=== PATIENT | female | born 1930 | race Caucasian/White ===

== ENCOUNTER → 2016-03-08 | Outpatient (REF) | payer MEDICARE, BC ==
[~2016-03-08] MED LIST: AMLO25TA PO; ATEN50TA2 PO; CELE-19 PO; CITRTAB18 PO; COMB0.2S OU; ECOT325T3 PO; FOLI1TAB2 PO; FOSI20TA PO; FURO40TA2 PO; HYDR25TAB PO; INFL10VL IV; METH2.5TA PO; MULTTAB PO; NEXI40CA PO; PRAV40TA2 PO; VITA200038 PO; XALA0.002 OU; [UNRECOGNIZED DRUG - CODE] PO
[2016-03-08 13:03] LABS: PERCENT SATURATION 17.6 % (13.2-37.4)
== END ==
LOC: M LAB REF 12:03
PROVIDERS: ATTEND Internal Medicine Medical Oncology
DX: C50.919 Malignant neoplasm of unspecified site of unspecified female breast (principal)

== ENCOUNTER → 2016-05-02 | Day surgery (SDC) | payer MEDICARE, BC ==
[~2016-05-02] VITALS: Ht 157.5 cm; Wt 56.7 kg
[~2016-05-02] MED LIST changes: +ACETAMINOPHEN 325 MG TAB PO PRN; +ACETYLCHOLINE OPHTH SOLN 1% 2ML As Ordered ONE; +ANOR1AER INH; +AcetaZOLAMIDE 500 MG ER CAP PO ONE; +BSS with VANC/TOB/EPI for EYE CASES IR ONE; +CEFUROXIME 1MG/0.1ML INTRACAMERAL INJ As Ordered ONE; +CEFUROXIME 1MG/0.1ML INTRACAMERAL INJ ICAM ONE; +CYCLOPENTOLATE 2% OPHTH SOLN OS ONE; +HEALON DUET (HEALON 10MG/ML 0.55ML & HEALON ENDOCOAT 30MG/ML 0.85ML) As Ordered ONE; +KETOROLAC 0.5% OPHTH SOLN OS ONE; +LIDOCAINE 1% SDV 5 ML VIAL As Ordered ONE; +LIDOCAINE 2% W/EPIN INJ 20ML **PRES FREE As Ordered ONE; +LIDOCAINE 4% INJ 5 ML AMP OU ONE; +MIDAZOLAM INJ 2 MG/2 ML VIAL (J2250) As Ordered ONE; +OFLOXACIN 0.3 % (OCUFLOX) OPTH SOL 5ML OS ONE; +PHENYLEPHRINE 2.5% OPHTH SOL 2ML OS ONE; +POVIDONE-IODINE 5% OPHTH PREP SOL 30ML As Ordered ONE; +PROPARACAINE 0.5% OPHTH SOL 15ML OS PRN; +TOBRADEX OPHTH OINT 3.5 GM As Ordered ONE; +TRIMETHOBENZAMIDE 300 MG CAP PO PRN; +TROPICAMIDE 1% OPHTH SOLN 2 ML OS ONE; +fentaNYL 100 MCG/2 ML INJECTION (J3010) As Ordered ONE; +mitoMYcin (FOR OPHTHALMIC USE) 0.3MG/1ML SYRINGE IN NaCl (J7999) As Ordered ONE; +mitoMYcin (FOR OPHTHALMIC USE) 0.3MG/1ML SYRINGE IN NaCl (J7999) OS ONE
[2016-05-02 10:10] VITALS: BP 159/76
--- NOTE | 2016-05-02 11:41 | RO ---
DATE OF PROCEDURE: 05/02/2016 PREOPERATIVE DIAGNOSIS: Cataract and glaucoma left eye. POSTOPERATIVE DIAGNOSIS: Cataract and glaucoma left eye. PROCEDURE: ExPRESS shunt placement, glaucoma filtration device, and phacoemulsification with intraocular lens implantation, power [id number] 23 diopters. SURGEON: Cristopher Nieves MD EMERGENCY MEDICINE PHYSICIAN: None. COMPLICATIONS: None. PROCEDURE IN DETAIL: The patient was brought to the operating room and laid in supine position. The eye was prepped and draped in a sterile fashion for ophthalmic surgery and a lid speculum was placed. A temporal clear cornea incision was then made with a 2.5 mm keratome after a side port incision was made and EndoCoat was injected into the eye. Capsulorrhexis was then carried out followed by hydrodissection. Phacoemulsification was then done in a divide and conquer method followed by aspiration of the cortical material. Healon was placed in the capsular bag and lens injected. Excess viscoelastic was aspirated and a #10-0 nylon suture was used to close the temporal clear cornea wound. Attention was then diverted to placement of the ExPRESS shunt and a subconjunctival injection of 2% lidocaine with 1:100,000 epinephrine was placed in the subconjunctival space superiorly. The eye was rotated inferiorly using #7-0 Vicryl suture. Conjunctival peritomy was done between 10 oclock and 2 oclock hours followed by subconjunctival dissection superiorly, medially and laterally. A rectangular 4 mm x 3 mm scleral flap was then created, which was limbal based superiorly. The flat was lifted and the anterior chamber was entered with a 27 gauge needle at the blue line. The needle was retracted and through the same needle the ExPRESS shunt was placed. This was draped over by the scleral flap and the conjunctiva closed using #8-0 Vicryl sutures and #10-0 nylon sutures. The wound were tested for leaks. No leaks were noted. Prior to doing the scleral flap, Mitomycin 0.3 mg was placed on the scleral bed followed by copious irrigation after 2 minutes with balance salt solution (BSS). The lid speculum was removed. TobraDex ointment was placed. The eye was patched and Smalls shield was applied. The patient was returned to the recovery room in stable condition.
== END | disposition home or self-care (01) ==
LOC: M SDC 06:21
PROVIDERS: ATTEND Ophthalmology
DX: H26.9 Unspecified cataract (principal); H40.812 Glaucoma with increased episcleral venous pressure, left eye; I10 Essential (primary) hypertension; E78.5 Hyperlipidemia, unspecified; Z87.891 Personal history of nicotine dependence; Z79.899 Other long term (current) drug therapy; Z92.21 Personal history of antineoplastic chemotherapy; K21.9 Gastro-esophageal reflux disease without esophagitis
CPT/HCPCS: 66183; 66984; C1783; J2250; J3010; J7999; V2632

== ENCOUNTER 2016-08-15 07:50 | Outpatient (CLI) | payer MEDICARE, BC ==
[~2016-08-15 07:50] MED LIST changes: -ACETAMINOPHEN 325 MG TAB PO PRN; -ACETYLCHOLINE OPHTH SOLN 1% 2ML As Ordered ONE; -AcetaZOLAMIDE 500 MG ER CAP PO ONE; -BSS with VANC/TOB/EPI for EYE CASES IR ONE; -CEFUROXIME 1MG/0.1ML INTRACAMERAL INJ As Ordered ONE; -CEFUROXIME 1MG/0.1ML INTRACAMERAL INJ ICAM ONE; -CELE-19 PO; +CELE1CAP4 PO; +COSA500C3 PO; -CYCLOPENTOLATE 2% OPHTH SOLN OS ONE; -ECOT325T3 PO; +ECOT325T5 PO; -FOLI1TAB2 PO; +FOLI1TAB4 PO; -HEALON DUET (HEALON 10MG/ML 0.55ML & HEALON ENDOCOAT 30MG/ML 0.85ML) As Ordered ONE; -KETOROLAC 0.5% OPHTH SOLN OS ONE; -LIDOCAINE 1% SDV 5 ML VIAL As Ordered ONE; -LIDOCAINE 2% W/EPIN INJ 20ML **PRES FREE As Ordered ONE; -LIDOCAINE 4% INJ 5 ML AMP OU ONE; -MIDAZOLAM INJ 2 MG/2 ML VIAL (J2250) As Ordered ONE; -OFLOXACIN 0.3 % (OCUFLOX) OPTH SOL 5ML OS ONE; -PHENYLEPHRINE 2.5% OPHTH SOL 2ML OS ONE; -POVIDONE-IODINE 5% OPHTH PREP SOL 30ML As Ordered ONE; -PROPARACAINE 0.5% OPHTH SOL 15ML OS PRN; -TOBRADEX OPHTH OINT 3.5 GM As Ordered ONE; -TRIMETHOBENZAMIDE 300 MG CAP PO PRN; -TROPICAMIDE 1% OPHTH SOLN 2 ML OS ONE; -XALA0.002 OU; +XALA0.007 OU; -[UNRECOGNIZED DRUG - CODE] PO; -fentaNYL 100 MCG/2 ML INJECTION (J3010) As Ordered ONE; -mitoMYcin (FOR OPHTHALMIC USE) 0.3MG/1ML SYRINGE IN NaCl (J7999) As Ordered ONE; -mitoMYcin (FOR OPHTHALMIC USE) 0.3MG/1ML SYRINGE IN NaCl (J7999) OS ONE
[2016-08-15] MEDS ORDERED: ZOLEDRONIC ACID 5 MG in APPROPRIATE DILUENT 1 EA IV ONE (08:00)
== END 2016-08-15 09:00 | disposition home or self-care (01) ==
LOC: M INFU 07:50
PROVIDERS: ATTEND Internal Medicine Endocrinology, Diabetes & Metabolism
DX: M81.0 Age-related osteoporosis without current pathological fracture (principal); Z78.0 Asymptomatic menopausal state; Z85.3 Personal history of malignant neoplasm of breast; Z87.891 Personal history of nicotine dependence; Z79.899 Other long term (current) drug therapy
CPT/HCPCS: 96365; J3489

== ENCOUNTER → 2016-12-12 | Outpatient (REF) | payer MEDICARE, BC | LOC: M LAB REF 17:10 | PROVIDERS: ATTEND Ophthalmology | DX: H02.413 Mechanical ptosis of bilateral eyelids (principal); H02.831 Dermatochalasis of right upper eyelid; H02.834 Dermatochalasis of left upper eyelid ==

== ENCOUNTER → 2017-12-21 | Outpatient (REF) | payer MEDICARE, BC ==
[2017-12-21 17:27] LABS: BASO % 0.5 % (0.0-1.0); EOS # 0.3 10^3/uL (0.0-0.50); EOS % 4.7 % (0.0-3.0); HEMATOCRIT 40.2 % (36.0-47.0); HEMOGLOBIN 13.2 g/dl (12.0-15.5); IMMATURE GRANULOCYTE % 0.3 % (0-3.0); LYMPH # 1.1 10^3/uL (1.5-4.5); LYMPH % 16.4 % (24.0-44.0); MEAN CORPUSCULAR HEMOGLOBIN 32.9 pg (27.0-33.0); MEAN CORPUSCULAR HGB CONC 32.8 g/dl (32.0-36.5); MEAN CORPUSCULAR VOLUME 100.2 fl (80.0-96.0); MONO % 15.6 % (0.0-5.0); NEUTROPHILS % 62.5 % (36.0-66.0); PLATELET COUNT, AUTOMATED 169 10^3/uL (150-450); RED BLOOD COUNT 4.01 10^6/uL (4.00-5.40); RED CELL DISTRIBUTION WIDTH 14.3 % (11.5-14.5); WHITE BLOOD COUNT 6.4 10^3/uL (4.0-10.0)
[2017-12-21 17:30] LABS: ALBUMIN 3.7 GM/DL (3.2-5.2); ALBUMIN/GLOBULIN RATIO 1.23 (1.00-1.93); ALKALINE PHOSPHATASE 82 U/L (45-117); ALT/SGPT 28 U/L (12-78); ANION GAP 6 MEQ/L (8-16); AST/SGOT 27 U/L (7-37); BILIRUBIN,TOTAL 0.5 MG/DL (0.2-1.0); BLOOD UREA NITROGEN 18 MG/DL (7-18); C REACTIVE PROTEIN QUANTITATIV 7.12 MG/DL (0.00-0.30); CALCIUM LEVEL 9.2 MG/DL (8.8-10.2); CARBON DIOXIDE LEVEL 30 MEQ/L (21-32); CHLORIDE LEVEL 101 MEQ/L (98-107); CREATININE FOR GFR 0.79 MG/DL (0.55-1.30); GLOMERULAR FILTRATION RATE > 60.0 (>32); GLUCOSE, FASTING 110 MG/DL (70-100); SODIUM LEVEL 137 MEQ/L (136-145); TOTAL PROTEIN 6.7 GM/DL (6.4-8.2)
[2017-12-21 18:17] LABS: ERYTHROCYTE SEDIMENTATION RATE 39 mm/hr (0-42)
== END ==
LOC: M SFHCLERA 11:01
DX: M06.9 Rheumatoid arthritis, unspecified (principal)
CPT/HCPCS: 80053

== ENCOUNTER 2018-01-08 13:25 | Outpatient (CLI) | payer MEDICARE, BC ==
[2018-01-08] MEDS: ACETAMINOPHEN 650MG PO PRIOR TO INFUSION PO (13:55)
[2018-01-08] MEDS: diphenhydrAMINE 25MG PO PRIOR TO INFUSION PO (13:55)
[2018-01-08] MEDS ORDERED: NS 1,000 ML IV (14:00)
[2018-01-08] MEDS: FILTER 1.2 MICRON (ADULT TPN/MANNITOL/REMICADE) XX (14:19)
[2018-01-08] MEDS: inFLIXimab INJECTION 300 MG in NS 220 ML IV (14:19)
== END 2018-01-08 17:00 | disposition home or self-care (01) ==
LOC: M INFU 13:25
DX: M06.9 Rheumatoid arthritis, unspecified (principal); M19.91 Primary osteoarthritis, unspecified site
CPT/HCPCS: J1745

== ENCOUNTER → 2018-02-22 | Outpatient (REF) | payer MEDICARE, BC ==
[~2018-02-22] MED LIST changes: +FOLI1TAB11 PO; -FOLI1TAB4 PO; -FOSI20TA PO; +FOSI20TA4 PO; +METH2.5T48 PO; -METH2.5TA PO
[2018-02-22 13:42] LABS: BASO % 0.1 % (0.0-1.0); HEMOGLOBIN 13.5 g/dl (12.0-15.5); LYMPH # 1.1 10^3/uL (1.5-4.5); LYMPH % 14.5 % (24.0-44.0); MEAN CORPUSCULAR HEMOGLOBIN 32.8 pg (27.0-33.0); MEAN CORPUSCULAR HGB CONC 33.8 g/dl (32.0-36.5); MEAN CORPUSCULAR VOLUME 97.1 fl (80.0-96.0); MONO # 0.7 10^3/uL (0.0-0.8); MONO % 8.6 % (0.0-5.0); NEUTROPHILS # 5.8 10^3/uL (1.8-7.7); NEUTROPHILS % 76.4 % (36.0-66.0); PLATELET COUNT, AUTOMATED 188 10^3/uL (150-450); RED BLOOD COUNT 4.12 10^6/uL (4.00-5.40); WHITE BLOOD COUNT 7.5 10^3/uL (4.0-10.0)
[2018-02-22 13:45] LABS: ALBUMIN 3.9 GM/DL (3.2-5.2); ALT/SGPT 28 U/L (12-78); BILIRUBIN,TOTAL 0.3 MG/DL (0.2-1.0); BLOOD UREA NITROGEN 23 MG/DL (7-18); C REACTIVE PROTEIN QUANTITATIV < 0.30 MG/DL (0.00-0.30); CALCIUM LEVEL 9.3 MG/DL (8.8-10.2); CARBON DIOXIDE LEVEL 27 MEQ/L (21-32); CHLORIDE LEVEL 100 MEQ/L (98-107); CREATININE FOR GFR 0.63 MG/DL (0.55-1.30); GLOMERULAR FILTRATION RATE > 60.0 (>32); GLUCOSE, FASTING 109 MG/DL (70-100); POTASSIUM SERUM 3.9 MEQ/L (3.5-5.1); SODIUM LEVEL 137 MEQ/L (136-145); URIC ACID 3.2 MG/DL (2.6-6.0)
[2018-02-22 13:51] LABS: TOTAL 25(OH) VITAMIN D 63.4 NG/ML (30.0-100.0)
[2018-02-22 14:10] LABS: ERYTHROCYTE SEDIMENTATION RATE 12 mm/hr (0-42)
== END ==
LOC: M SFHCPLAZ 11:02
PROVIDERS: ATTEND Internal Medicine Rheumatology
DX: M06.9 Rheumatoid arthritis, unspecified (principal)
CPT/HCPCS: 36415; 80053; 82306; 84550; 85025; 85652; 86140; G0463

== ENCOUNTER 2018-03-05 10:57 | Outpatient (CLI) | payer MEDICARE, BC ==
[~2018-03-05] VITALS: Ht 182.9 cm; Wt 60.0 kg
[2018-03-05] VITALS (8 sets, daily range): BP systolic 126–158; BP diastolic 58–69
[2018-03-05] MEDS ORDERED: NS 1,000 ML IV SCH (11:30)
[2018-03-05] MEDS ORDERED: inFLIXimab INJECTION 300 MG in NS 220 ML IV ONE (11:30)
[2018-03-05] MEDS ORDERED: ACETAMINOPHEN 650MG PO PRIOR TO INFUSION PO ONE (11:30)
[2018-03-05] MEDS ORDERED: diphenhydrAMINE 25MG PO PRIOR TO INFUSION PO ONE (11:30)
[2018-03-05] MEDS ORDERED: FILTER 1.2 MICRON (ADULT TPN/MANNITOL/REMICADE) XX ONE (11:30)
== END 2018-03-05 14:20 | disposition home or self-care (01) ==
LOC: M INFU 10:57
PROVIDERS: ATTEND Internal Medicine Rheumatology
DX: M06.9 Rheumatoid arthritis, unspecified (principal); M19.91 Primary osteoarthritis, unspecified site
CPT/HCPCS: 96413; 96415; J1745

== ENCOUNTER → 2018-04-17 | Outpatient (REF) | payer MEDICARE, BC ==
[2018-04-17 14:15] LABS: BASO # 0.1 10^3/uL (0.0-0.2); BASO % 0.8 % (0.0-1.0); EOS # 0.4 10^3/uL (0.0-0.50); EOS % 6.8 % (0.0-3.0); HEMATOCRIT 42.6 % (36.0-47.0); HEMOGLOBIN 14.4 g/dl (12.0-15.5); LYMPH # 1.6 10^3/uL (1.5-4.5); LYMPH % 24.6 % (24.0-44.0); MEAN CORPUSCULAR HEMOGLOBIN 32.8 pg (27.0-33.0); MEAN CORPUSCULAR HGB CONC 33.8 g/dl (32.0-36.5); MONO # 0.6 10^3/uL (0.0-0.8); MONO % 9.6 % (0.0-5.0); NEUTROPHILS # 3.7 10^3/uL (1.8-7.7); NEUTROPHILS % 57.9 % (36.0-66.0); PLATELET COUNT, AUTOMATED 195 10^3/uL (150-450); RED BLOOD COUNT 4.39 10^6/uL (4.00-5.40); WHITE BLOOD COUNT 6.5 10^3/uL (4.0-10.0)
[2018-04-17 14:45] LABS: ERYTHROCYTE SEDIMENTATION RATE 21 mm/hr (0-42)
[2018-04-17 15:02] LABS: ALBUMIN 4.1 GM/DL (3.2-5.2); ALT/SGPT 23 U/L (12-78); BILIRUBIN,TOTAL 0.4 MG/DL (0.2-1.0); BLOOD UREA NITROGEN 18 MG/DL (7-18); C REACTIVE PROTEIN QUANTITATIV < 0.30 MG/DL (0.00-0.30); CALCIUM LEVEL 9.2 MG/DL (8.8-10.2); CARBON DIOXIDE LEVEL 29 MEQ/L (21-32); CHLORIDE LEVEL 102 MEQ/L (98-107); CHOLESTEROL LEVEL 179 MG/DL (<200); CHOLESTEROL RISK RATIO 2.081 (<5); FREE T4 1.44 NG/DL (0.76-1.46); GLOMERULAR FILTRATION RATE > 60.0 (>32); GLUCOSE, FASTING 103 MG/DL (70-100); HDL CHOLESTEROL 86 MG/DL (>40); LDL CHOLESTEROL 78 MG/DL (<100); NON-HDL-C 93 MG/DL; POTASSIUM SERUM 4.1 MEQ/L (3.5-5.1); SODIUM LEVEL 138 MEQ/L (136-145); TOTAL PROTEIN 7.2 GM/DL (6.4-8.2); TRIGLYCERIDES LEVEL 75 MG/DL (<150)
== END ==
LOC: M SFHCPLAZ 11:21
PROVIDERS: ATTEND Internal Medicine Rheumatology
DX: M06.9 Rheumatoid arthritis, unspecified (principal); M19.91 Primary osteoarthritis, unspecified site; R91.8 Other nonspecific abnormal finding of lung field; R76.12 Nonspecific reaction to cell mediated immunity measurement of gamma interferon antigen response without active tuberculosis

== ENCOUNTER → 2018-04-17 | Outpatient (REF) | payer MEDICARE, BC ==
[~2018-04-17] MED LIST changes: +HYDR-2541 PO
[2018-04-17 14:36] LABS: CALCIUM LEVEL 9.3 MG/DL (8.8-10.2)
[2018-04-17 14:55] LABS: TOTAL 25(OH) VITAMIN D 61.4 NG/ML (30.0-100.0)
== END ==
LOC: M LAB REF 14:06
PROVIDERS: ATTEND Nurse Practitioner Family
DX: M81.0 Age-related osteoporosis without current pathological fracture (principal); E55.9 Vitamin D deficiency, unspecified
CPT/HCPCS: 36415; 80053; 80061; 82306; 84439; 84443; 85025; 85652; 86140; G0463

== ENCOUNTER 2018-04-30 10:45 | Outpatient (CLI) | payer MEDICARE, BC ==
[2018-04-30] VITALS (8 sets, daily range): BP systolic 122–176; BP diastolic 58–72
[~2018-04-30] VITALS: Ht 182.9 cm; Wt 60.0 kg
[~2018-04-30 10:45] MED LIST changes: -HYDR-2541 PO
[2018-04-30] MEDS ORDERED: diphenhydrAMINE 25MG PO PRIOR TO INFUSION PO ONE (11:15)
[2018-04-30] MEDS ORDERED: FILTER 1.2 MICRON (ADULT TPN/MANNITOL/REMICADE) XX ONE (11:15)
[2018-04-30] MEDS ORDERED: NS 1,000 ML IV SCH (11:15)
[2018-04-30] MEDS ORDERED: ACETAMINOPHEN 650MG PO PRIOR TO INFUSION PO ONE (11:15)
[2018-04-30] MEDS ORDERED: inFLIXimab INJECTION 300 MG in NS 220 ML IV ONE (12:00)
== END 2018-04-30 14:30 | disposition home or self-care (01) ==
LOC: M INFU 10:45
PROVIDERS: ATTEND Internal Medicine Rheumatology
DX: M06.9 Rheumatoid arthritis, unspecified (principal)
CPT/HCPCS: 96413; 96415; J1745

== ENCOUNTER 2018-06-25 10:57 | Outpatient (CLI) | payer MEDICARE, BC ==
[2018-06-25] VITALS (8 sets, daily range): BP systolic 106–161; BP diastolic 59–76
[~2018-06-25] VITALS: Ht 157.5 cm; Wt 63.4 kg
[~2018-06-25 10:57] MED LIST changes: -FOSI20TA4 PO; +FOSI20TA79 PO; +HYDR-2541 PO
[2018-06-25] MEDS ORDERED: NS 1,000 ML IV SCH (11:15)
[2018-06-25] MEDS ORDERED: LORATADINE 10 MG TAB PO ONE (11:15)
[2018-06-25] MEDS ORDERED: ACETAMINOPHEN 650MG ER TAB (TYLENOL ARTHRITIS) PO ONE (11:15)
[2018-06-25] MEDS ORDERED: diphenhydrAMINE INJ 50MG/ML VIAL (J1200) IV PRN (12:00)
[2018-06-25] MEDS ORDERED: inFLIXimab INJECTION 300 MG in NS 220 ML IV ONE (12:00)
[2018-06-25] MEDS ORDERED: EPINEPHrine INJ 1 MG/ML 1ML AMP IM PRN (12:00)
[2018-06-25] MEDS ORDERED: ALBUTEROL SULFATE 2.5 MG/0.5 ML INH NEB SOLN INH PRN (12:00)
[2018-06-25] MEDS ORDERED: methylPREDNISolone INJ 125 MG/2 ML VIAL (J2930) IV PRN (12:00)
[2018-06-25] MEDS ORDERED: FILTER 1.2 MICRON (ADULT TPN/MANNITOL/REMICADE) XX ONE (12:00)
== END 2018-06-25 14:20 | disposition home or self-care (01) ==
LOC: M INFU 10:57
PROVIDERS: ATTEND Internal Medicine Rheumatology
DX: M06.9 Rheumatoid arthritis, unspecified (principal); J30.2 Other seasonal allergic rhinitis
CPT/HCPCS: 96413; 96415; J1745

== ENCOUNTER → 2018-07-16 | Outpatient (REF) | payer MEDICARE, BC ==
[2018-07-16 19:50] LABS: ALBUMIN 4.2 GM/DL (3.2-5.2); ALT/SGPT 24 U/L (12-78); BILIRUBIN,TOTAL 0.5 MG/DL (0.2-1.0); BLOOD UREA NITROGEN 20 MG/DL (7-18); CALCIUM LEVEL 9.9 MG/DL (8.8-10.2); CARBON DIOXIDE LEVEL 29 MEQ/L (21-32); CHLORIDE LEVEL 101 MEQ/L (98-107); CREATININE FOR GFR 0.64 MG/DL (0.55-1.30); GLOMERULAR FILTRATION RATE > 60.0 (>32); GLUCOSE, FASTING 100 MG/DL (70-100); POTASSIUM SERUM 3.8 MEQ/L (3.5-5.1); SODIUM LEVEL 138 MEQ/L (136-145); TOTAL PROTEIN 7.4 GM/DL (6.4-8.2)
[2018-07-16 19:59] LABS: BASO # 0.1 10^3/uL (0.0-0.2); BASO % 1.1 % (0.0-1.0); EOS # 0.3 10^3/uL (0.0-0.50); EOS % 4.3 % (0.0-3.0); HEMATOCRIT 41.4 % (36.0-47.0); HEMOGLOBIN 13.6 g/dl (12.0-15.5); LYMPH # 2.4 10^3/uL (1.5-4.5); LYMPH % 38.3 % (24.0-44.0); MEAN CORPUSCULAR HEMOGLOBIN 31.8 pg (27.0-33.0); MEAN CORPUSCULAR HGB CONC 32.9 g/dl (32.0-36.5); MEAN CORPUSCULAR VOLUME 96.7 fl (80.0-96.0); MONO # 0.6 10^3/uL (0.0-0.8); NEUTROPHILS % 47.1 % (36.0-66.0); PLATELET COUNT, AUTOMATED 213 10^3/uL (150-450); RED BLOOD COUNT 4.28 10^6/uL (4.00-5.40); WHITE BLOOD COUNT 6.3 10^3/uL (4.0-10.0)
[2018-07-16 20:54] LABS: ERYTHROCYTE SEDIMENTATION RATE 15 mm/hr (0-42)
== END ==
LOC: M SFHCPLAZ 15:25
PROVIDERS: ATTEND Internal Medicine Rheumatology
DX: M06.9 Rheumatoid arthritis, unspecified (principal)
CPT/HCPCS: 36415; 80053; 85025; 85652; 86140; G0463

== ENCOUNTER 2018-08-20 10:43 | Outpatient (CLI) | payer MEDICARE, BC ==
[~2018-08-20] VITALS: Ht 157.5 cm; Wt 63.4 kg
[2018-08-20 11:03] VITALS: BP 154/73
[2018-08-20] MEDS ORDERED: methylPREDNISolone INJ 125 MG/2 ML VIAL (J2930) IV PRN (11:15)
[2018-08-20] MEDS ORDERED: inFLIXimab INJECTION 300 MG in NS 220 ML IV ONE (11:15)
[2018-08-20] MEDS ORDERED: EPINEPHrine INJ 1 MG/ML 1ML VIAL IM PRN (11:15)
[2018-08-20] MEDS ORDERED: NS 1,000 ML IV SCH (11:15)
[2018-08-20] MEDS ORDERED: diphenhydrAMINE INJ 50MG/ML VIAL (J1200) IV PRN (11:15)
[2018-08-20] MEDS ORDERED: ACETAMINOPHEN 650MG ER TAB (TYLENOL ARTHRITIS) PO ONE (11:15)
[2018-08-20] MEDS ORDERED: LORATADINE 10 MG TAB PO ONE (11:15)
[2018-08-20] MEDS ORDERED: ALBUTEROL SULFATE 2.5 MG/0.5 ML INH NEB SOLN INH PRN (11:15)
[2018-08-20] MEDS ORDERED: FILTER 1.2 MICRON (ADULT TPN/MANNITOL/REMICADE) XX ONE (11:15)
[2018-08-20 13:54] VITALS: BP 144/61
[2019-02-14] MEDS ORDERED: LEVO25TA5 PO (09:24)
== END 2018-08-20 14:00 | disposition home or self-care (01) ==
LOC: M INFU 10:43
PROVIDERS: ATTEND Internal Medicine Rheumatology
DX: M06.9 Rheumatoid arthritis, unspecified (principal)
CPT/HCPCS: 96413; 96415; J1745

== ENCOUNTER 2018-10-15 12:45 | Outpatient (CLI) | payer MEDICARE ==
[~2018-10-15] VITALS: Ht 157.5 cm; Wt 63.4 kg
[2018-10-15 12:50] VITALS: BP 155/70
[2018-10-15] MEDS ORDERED: LORATADINE 10 MG TAB PO ONE (13:00)
[2018-10-15] MEDS: NS 1,000 ML IV SCH ×2 (13:15→13:37)
[2018-10-15] MEDS ORDERED: TRAV04OPD OU (13:29)
[2018-10-15 14:00] VITALS: BP 137/64
[2018-10-15] MEDS ORDERED: diphenhydrAMINE INJ 50MG/ML VIAL (J1200) IV PRN (14:00)
[2018-10-15] MEDS ORDERED: methylPREDNISolone INJ 125 MG/2 ML VIAL (J2930) IV PRN (14:00)
[2018-10-15] MEDS ORDERED: FILTER 1.2 MICRON (ADULT TPN/MANNITOL/REMICADE) XX ONE (14:00)
[2018-10-15] MEDS ORDERED: inFLIXimab INJECTION 300 MG in NS 220 ML IV ONE (14:00)
[2018-10-15] MEDS ORDERED: ALBUTEROL SULFATE 2.5 MG/0.5 ML INH NEB SOLN INH PRN (14:00)
[2018-10-15] MEDS ORDERED: EPINEPHrine INJ 1 MG/ML 1ML AMP IM PRN (14:00)
[2018-10-15] MEDS ORDERED: ACETAMINOPHEN 650MG ER TAB (TYLENOL ARTHRITIS) PO ONE (14:00)
[2018-10-15 14:30] VITALS: BP 145/66
[2018-10-15 15:00] VITALS: BP 154/71
[2018-10-15 15:15] VITALS: BP 166/76
== END 2018-10-15 15:20 | disposition home or self-care (01) ==
LOC: M INFU 12:45
PROVIDERS: ATTEND Internal Medicine Rheumatology
DX: M06.9 Rheumatoid arthritis, unspecified (principal)
CPT/HCPCS: 96413; J1745

== ENCOUNTER 2018-12-10 12:44 | Outpatient (CLI) | payer MEDICARE ==
[~2018-12-10] VITALS: Ht 157.5 cm; Wt 63.0 kg
[~2018-12-10 12:44] MED LIST changes: +TRAV04OPD OU
[2018-12-10 12:50] VITALS: BP 154/70
[2018-12-10] MEDS ORDERED: LORATADINE 10 MG TAB PO ONE (13:15)
[2018-12-10] MEDS ORDERED: NS 1,000 ML IV SCH (13:15)
[2018-12-10] MEDS ORDERED: diphenhydrAMINE INJ 50MG/ML VIAL (J1200) IV PRN (13:15)
[2018-12-10] MEDS ORDERED: EPINEPHrine INJ 1 MG/ML 1ML AMP IM PRN (13:15)
[2018-12-10] MEDS ORDERED: ALBUTEROL SULFATE 2.5 MG/0.5 ML INH NEB SOLN INH PRN (13:15)
[2018-12-10] MEDS ORDERED: methylPREDNISolone INJ 125 MG/2 ML VIAL (J2930) IV PRN (13:15)
[2018-12-10] MEDS ORDERED: FILTER 1.2 MICRON (ADULT TPN/MANNITOL/REMICADE) XX ONE (13:15)
[2018-12-10] MEDS ORDERED: ACETAMINOPHEN 650MG ER TAB (TYLENOL ARTHRITIS) PO ONE (13:15)
[2018-12-10] MEDS ORDERED: inFLIXimab INJECTION 300 MG in NS 220 ML IV ONE (13:30)
== END 2018-12-10 15:00 | disposition home or self-care (01) ==
LOC: M INFU 12:44
PROVIDERS: ATTEND Internal Medicine Rheumatology
DX: M06.9 Rheumatoid arthritis, unspecified (principal)
CPT/HCPCS: 96413; J1745

== ENCOUNTER 2019-02-04 13:24 | Outpatient (CLI) | payer MEDICARE ==
[~2019-02-04] VITALS: Ht 157.5 cm; Wt 63.0 kg
[2019-02-04 13:30] VITALS: BP 141/72
[2019-02-04] MEDS ORDERED: ACETAMINOPHEN 650MG ER TAB (TYLENOL ARTHRITIS) PO ONE (13:45)
[2019-02-04] MEDS ORDERED: ALBUTEROL SULFATE 2.5 MG/0.5 ML INH NEB SOLN INH PRN (13:45)
[2019-02-04] MEDS ORDERED: diphenhydrAMINE INJ 50MG/ML VIAL (J1200) IV PRN (13:45)
[2019-02-04] MEDS ORDERED: methylPREDNISolone INJ 125 MG/2 ML VIAL (J2930) IV PRN (13:45)
[2019-02-04] MEDS ORDERED: NS 1,000 ML IV SCH (13:45)
[2019-02-04] MEDS ORDERED: LORATADINE 10 MG TAB PO ONE ×2 (13:45→14:00)
[2019-02-04] MEDS ORDERED: EPINEPHrine INJ 1 MG/ML 1ML VIAL IM PRN (13:45)
[2019-02-04] MEDS ORDERED: OMEP40CA97 PO (13:55)
[2019-02-04] MEDS ORDERED: inFLIXimab INJECTION 300 MG in NS 220 ML IV ONE (14:00)
[2019-02-04 15:45] VITALS: BP 126/61
== END 2019-02-04 15:45 | disposition home or self-care (01) ==
LOC: M INFU 13:24
PROVIDERS: ATTEND Internal Medicine Rheumatology
DX: R06.9 Unspecified abnormalities of breathing (principal)
CPT/HCPCS: 96413; J1745

== ENCOUNTER → 2019-03-04 | Outpatient (CLI) | payer MEDICARE ==
[~2019-03-04] MED LIST changes: +LEVO25TA5 PO; +LIDOCAINE 1% MDV 20ML VIAL As Ordered ONE; +OMEP40CA97 PO
[2019-03-04 11:34] VITALS: BP 139/63
--- NOTE | 2019-03-04 18:47 | REP ---
ULTRASOUND RIGHT CHEST WALL: Real-time sonographic evaluation of the right chest wall was performed. There is an irregular hypoechoic nodule in the soft-tissues measuring 8 x 5 x 7 mm. Ultrasound guided biopsy was subsequently performed. Electronically Signed by Mikey Mcdonald MD 03/06/2019 12:13 P
--- NOTE | 2019-03-06 22:26 | REP ---
Ultrasound-guided right chest wall biopsy. The procedure was performed by KATALINA Mar, under the direct supervision of Dr. Mcdonald. The risks and benefits of the procedure were explained to the patient and informed consent was obtained both verbally and written. Directly prior to the start of the procedure, a formal timeout was completed in the procedure room. The right chest wall nodule was localized using ultrasound guidance. The skin was prepped and draped in a sterile fashion. Approximately 20 ml of 1% lidocaine 10 mg/ml was used as a local anesthetic. Using ultrasound guidance a 19/20 gauge coaxial needle biopsy system was inserted and advanced into the nodule, and 8 core biopsy samples were obtained. The patient tolerated the procedure well and there were no immediate complications. After the appropriate monitored convalescence the patient was discharged from the department. Reviewed by KATALINA Little 03/04/2019 12:02 P Electronically Signed by Mikey Mcdonald MD 03/06/2019 10:18 P
== END ==
LOC: M IRPRO 10:09
PROVIDERS: ATTEND Internal Medicine Hematology & Oncology
DX: C79.89 Secondary malignant neoplasm of other specified sites (principal); Z79.899 Other long term (current) drug therapy

== ENCOUNTER → 2019-03-20 | Outpatient (CLI) | payer MEDICARE ==
[~2019-03-20] MED LIST changes: +DORZ1SOL4 OP; -LIDOCAINE 1% MDV 20ML VIAL As Ordered ONE; +MULT1TAB7 PO; +OCUVTAB PO; +OPTI0.5D5 OP
--- NOTE | 2019-03-20 16:00 | REP ---
PET/CT: History: Right breast carcinoma. Right chest nodule. Palpable lump in the right chest wall. Prior right mastectomy 2007. Comparisons: Comparison sonography February 18, 2019. TECHNIQUE: 45 minutes following the intravenous injection of a 8.17 mCi dose of F-18 FDG, three-dimensional PET scintigraphy is acquired from the skull base to the proximal thighs. Triplanar noncontrast CT scanning is acquired through the same anatomic range for attenuation correction, and image registration with scan parameters optimized to minimize radiation exposure to the patient. PET scintigraphy and CT datasets were fused and displayed on a workstation with multiplanar and projection display capability. PET/CT Findings: Head and neck soft tissues are unremarkable. There are multiple pulmonary parenchymal nodules in the upper lobes bilaterally. These are fairly small, subcentimeter in size. They show visible but non-hypermetabolic radiotracer uptake. This ranges from 1.24 SUV to 1.56 SUV. These are not in the hypermetabolic range. No hypermetabolic uptake is seen in hilar or mediastinum structures. No abnormal focus of chest wall uptake is seen on the right to correspond with the recently biopsied chest wall recurrence. No axillary or other extrathoracic adenopathy is appreciated. In the abdomen and pelvis, normal hepatic, splenic, gastrointestinal, and genitourinary FDG accumulation is appreciated. No abnormal skeletal uptake is seen. Impression: There are multiple subcentimeter pulmonary nodules which show visible but non-hypermetabolic range uptake. Metastatic pulmonary parenchymal disease cannot be excluded. Otherwise negative PET scintigraphy. The biopsied nodule in the right chest wall is not observed and no hypermetabolic chest wall uptake is seen. Electronically Signed by Karan Orantes MD 03/20/2019 04:09 P
== END ==
LOC: M PLARAD 12:06
PROVIDERS: ATTEND Internal Medicine Hematology & Oncology
DX: R91.8 Other nonspecific abnormal finding of lung field (principal); Z85.3 Personal history of malignant neoplasm of breast; Z90.11 Acquired absence of right breast and nipple
CPT/HCPCS: 78815; A9552

== ENCOUNTER → 2019-03-22 | Outpatient (CLI) | payer MEDICARE ==
[~2019-03-22] MED LIST changes: -DORZ1SOL4 OP; -OCUVTAB PO; -OPTI0.5D5 OP
--- NOTE | 2019-03-22 11:40 | REP ---
Focused right breast sonography: History: Remote prior mastectomy. Palpable lump. Comparison sonography of a nodule in the mastectomy scar is from March 04, 2019. Ultrasound-guided needle biopsy of the nodule seen on March 04, 2019 was performed. Repeat imaging is requested regarding a possible palpable abnormality in the lateral aspect of the mastectomy scar closer to the axilla. Today's study is acquired at two different settings, March 22 and March 25, 2019. Findings: Scanning in the area of the medial palpable lump is performed. At this level, approximately the 3 o'clock position, 2 cm from the sternum in the medial aspect of the mastectomy scar, there is a hypoechoic nodule with irregular margins measuring 5 x 4 x 5 mm. It is somewhat angular and on some images appears taller than wide. There is some acoustic shadowing. This is identical in appearance to the nodule seen and biopsied on March 04, 2019 and I believe represents the same focus. The enterprise sales executive who performed the March 04, 2019 study recalls that this was medially positioned along the mastectomy scar at that time. On March 25, 2019, and at my request, the patient was recalled for scanning laterally towards the axilla. This as directed by the referring breast surgeon is in an area proximally 6 cm from the axilla. These images demonstrate an irregularly shaped hypoechoic area laterally measuring 2.1 x 0.5 x 0.8 cm. This has irregular borders. No acoustic shadowing is seen. It is of uncertain significance. Recurrent malignancy cannot be excluded here. Impression: 5 mm hypoechoic suspicious nodule in the soft tissues 2 cm from the sternum in the medial aspect of the mastectomy scar again seen. At the lateral aspect of the mastectomy scar closer to the axilla, there is a second hypoechoic irregularly shaped nodular structure 2.1 cm in greatest diameter. I cannot exclude recurrent malignancy in this more lateral location.
== END ==
LOC: M WHC 08:25
PROVIDERS: ATTEND Surgery
DX: N63.10 Unspecified lump in the right breast, unspecified quadrant (principal); Z90.11 Acquired absence of right breast and nipple; M70.88 Other soft tissue disorders related to use, overuse and pressure other site; Z85.3 Personal history of malignant neoplasm of breast

== ENCOUNTER → 2019-03-25 | Outpatient (CLI) | payer MEDICARE ==
[~2019-03-25] MED LIST changes: +DORZ1SOL4 OP; +GASTROGRAFIN SOLUTION 30ML (Q9963) As Ordered ONE; +ISOVUE-370 76% 100ML VIAL (Q9967) As Ordered ONE; +OCUVTAB PO; +OPTI0.5D5 OP
--- NOTE | 2019-03-25 17:44 | REP ---
Clinical: Breast cancer. Staging. Technique: Axial contrast enhanced images from the thoracic inlet to the upper abdomen with coronal and sagittal re-formations using 100 ml Isovue 370 intravenous contrast material. Comparison: 07/03/2014. Findings: The lung ayala demonstrate diffuse age-related chronic interstitial changes with bronchiectasis and scarring. Subtle scattered reticulonodular interstitial changes along with scattered small non solid densities and few nodular lesions primarily noted in the left upper lobe measuring up to 8 mm are appreciated and findings may represent early pulmonary metastatic disease. No effusion. No pneumothorax. No significant adenopathy identified. Atherosclerotic changes to the thoracic aorta and coronary arteries noted without aortic aneurysm or dissection. No pericardial effusion. Osseous structures demonstrate age-related changes without obvious focal osseous abnormality. Evidence for prior right mastectomy. Impression: Pulmonary parenchymal changes as described above including subtle scattered reticulonodular interstitial changes, non solid now nodular densities, and small few solid nodules up to 8 mm are concerning for metastatic disease. Short-term follow-up is recommended. Electronically Signed by Gabino Burton MD 03/25/2019 05:35 P
--- NOTE | 2019-03-25 17:46 | REP ---
Clinical: Breast cancer. Staging. Technique: Axial contrast enhanced images from the lung bases to the pubic symphysis using oral (per protocol) and 100 ml Isovue 370 intravenous contrast material with coronal and sagittal re-formations. Contrast and delayed images of the abdomen obtained. Findings: Liver, spleen, pancreas, gallbladder, bilateral adrenal glands and kidneys are normal. The enteric system demonstrates small hiatal hernia and no evidence for bowel obstruction or acute inflammatory process. Sigmoid diverticulosis noted without acute diverticulitis. Pelvis demonstrates normal bladder and age-appropriate uterus/adnexa. No ascites. No free air. No adenopathy. No obvious mass lesion. Atherosclerotic changes to the aorta and branch vessels noted without aneurysm or dissection. Musculoskeletal structures demonstrate degenerative changes without focal osseous abnormality. Impression: 1. No acute abdominopelvic pathology appreciated. Specifically, no evidence for metastatic disease. 2. Diverticulosis without acute diverticulitis. 3. Small hiatal hernia. 4. No ascites, adenopathy, or focal inflammatory stranding. Electronically Signed by Gabino Burton MD 03/25/2019 05:37 P
== END ==
LOC: M RAD 03-20 11:46
PROVIDERS: ATTEND Internal Medicine Hematology & Oncology
DX: R22.2 Localized swelling, mass and lump, trunk (principal); Z85.3 Personal history of malignant neoplasm of breast; J47.9 Bronchiectasis, uncomplicated; J84.10 Pulmonary fibrosis, unspecified; J91.8 Pleural effusion in other conditions classified elsewhere; I70.0 Atherosclerosis of aorta; I25.10 Atherosclerotic heart disease of native coronary artery without angina pectoris; Z90.11 Acquired absence of right breast and nipple; K57.90 Diverticulosis of intestine, part unspecified, without perforation or abscess without bleeding; K44.9 Diaphragmatic hernia without obstruction or gangrene
CPT/HCPCS: 71260; 74178; Q9963; Q9967

== ENCOUNTER → 2019-03-28 | Outpatient (CLI) | payer MEDICARE ==
[~2019-03-28] MED LIST changes: -GASTROGRAFIN SOLUTION 30ML (Q9963) As Ordered ONE; -ISOVUE-370 76% 100ML VIAL (Q9967) As Ordered ONE
--- NOTE | 2019-03-28 20:07 | RADONC ---
DATE OF CONSULTATION: 03/28/2019 CHIEF COMPLAINT: Recurrent breast cancer (CA). DIAGNOSIS: Initial diagnosis in 2007 was T2N0M0 ER/MT positive. HISTORY OF PRESENT ILLNESS: Ms. Cervantes an 88-year-old woman was seen with recurrent breast ca. She underwent right lumpectomy and right sentinel node biopsy on 02/27/2007 Pathology showed invasive lobular carcinoma, grade 2, ER 25% positive, MT negative, HER2 negative tumor 3 cm in size, and four sentinel lymph nodes were negative. Because of the positive margins right simple mastectomy was performed in April 2007, She underwent chemotherapy with doxycycline and Cytoxan from July 2007, to August 2007 according to the patient. She then started on anastrazole for the next 6 years until August 2013. She did well without any evidence of recurrence, or metastasis until 3months ago when she felt anodule in the medial edge of the right mastectomy scar. Ultrasound of that area confirmed 7 x 6 x 5 mm hypoechoic nodule at this site of palpable abnormality. Ultrasound-guided biopsy of the nodule was performed on 03/04/2019, and pathology showed adenocarcinoma, morphologically consistent with infiltrating mammary carcinoma with lobular features, similar to prior pathology, ER/MT positive, HER2/safia negative. She underwent staging workup. CT chest 03/25/2019 reported diffuse age-related chronic interstitial changes with bronchiectasis and scarring and also reported ductal scattered reticular nodular interstitial changes and small few solid nodules up to 8 mm concerning for metastatic disease. Short-term followup was recommended. CT of the abdomen and pelvis negative for suspicious metastatic disease. PETCT on 03/20/2019 reported multiple subcentimeter pulmonary nodules, which showed visible non-hypermetabolic range uptake. Metastatic disease cannot be excluded. She has no clinical symptoms at this time. PAST MEDICAL HISTORY: Significant: 1. As mentioned, breast cancer. 2. Hypothyroidism. 3. Rheumatoid arthritis. 4. Glaucoma bilateral. 5. Rheumatoid arthritis. 6. Osteoporosis. 7. Hyperlipidemia. 8. Hypertension. 9. She had positive diverticulosis (TB) test in 2010. Asymptomatic. No treatment. 10. GERD. PAST SURGICAL HISTORY: Includes right simple mastectomy in 2007. CURRENT MEDICATIONS: - Anoro Ellipta - hydrochlorothiazide 25 mg tablet once daily - levothyroxine sodium 25 mcg tablet one tablet orally daily - Ocuvite tablet one tablet orally - celecoxib 200 mg capsule one daily - Remicade 100 mg solution intravenous every 8 weeks - atenolol 50 mg tablet once daily - amlodipine besylate 5 mg tablet two daily - fosinopril sodium 20 mg tablet one tablet twice a day - loratadine 10 mg tablet orally - omeprazole 20 mg tablet once daily - Travatan ophthalmic solution - folic acid - Celebrex - pravastatin sodium 40 mg once daily ALLERGIES: She has no known drug allergies. REVIEW OF SYSTEMS: GENERAL/CONSTITUTIONAL: She denies fever, chills, night sweats, fatigue, or weight changes. HEENT: Denies visual problems or hearing problems. Denies tinnitus. CARDIOPULMONARY: Denies chest pain, shortness of breath (SOB), palpitations, dizziness, cough. GASTROINTESTINAL: Denies nausea, vomiting, constipation, diarrhea, or pain. She has gastroesophageal reflux disease (GERD). GENITOURINARY: Denies dysuria, hematuria, incontinence, frequency, or urgency. MUSCULOSKELETAL: Denies bone pain, muscle ache. CENTRAL NERVOUS SYSTEM: No tingling. No weakness. No numbness, headache. BREAST EXAMINATION: Noted right mastectomy scar, and there is a noted healed biopsy scar in the medial end of the mastectomy, and there is slight tenderness over that scar. There is no palpable adenopathy in the neck or axilla bilaterally. PHYSICAL EXAMINATION: Eastern Cooperative Oncology Group (ECOG) performance status is 1. GENERAL: She appears to be younger than her stated age of 88. She is alert, oriented. VITAL SIGNS: Blood pressure 130/70, temperature 97.7, pulse 62, respirations 16. She weighs 136.4 pounds. Height 63 inches. Oxygen saturation is 95% on room air. HEENT: There is no palpable adenopathy on the neck or axilla bilaterally. BREASTS: There is a well-healed mastectomy scar. of the right chest wall. Medial end of the scar there is a well-healed biopsy scar, and there is slight induration above the scar and tender on palpation. There is no visible nodules. Left breast is nogative lump or tenderness. LUNGS: cparse breath sound both lungs. no wheezing. HEART: Regular rhythm and rate. ABDOMEN: Soft, nontender, nondistended without any palpable mass or organomegaly. EXTREMITIES: There is no cyanosis. There are swelling in both legs, about 1-2 pitting. SKIN: No skin changes. MUSCULOSKELETAL: No tenderness over the spine and rib cages. PATHOLOGIC FINDINGS: As mentioned in history of present illness (HPI). Radiologic findings mentioned in HPI. ICD-10 code C50.311. DIAGNOSIS: Recurrent invasive lobular carcinoma, INITIAL STAGING:T2N0 ER/MT positive, HER2/safia negative. ASSESSMENT AND RECOMMENDATIONS: Ms. Cervantes is an 88-year-old woman who has a history of right lumpectomy 02/27/2007. Pathology showed invasive lobular carcinoma, measuring 3 cm in size. Four sentinel nodes were negative. Because of the positive margin, she underwent simple mastectomy in April 2007. She received adjuvant chemotherapy until August 2007 and continued Arimidex to 2013. Patient did well until about 2-3 months ago, when she felt a lump around the mastectomy scar. The ultrasound of that nodule confirmed 7 x 6 x 5 mm hypoechoic nodule, and ultrasound-guided biopsy on 03/04/2019 came back adenocarcinoma, morphologically consistent with history of infiltrating mammary carcinoma with lobular features, ER/MT positive, HER2/safia negative. She had a CT chest, abdomen,pelvis and a PET CT. CT of the chest showed diffuse chronic interstitial changes with bronchiectasis and scarring a small few solid nodules up to 8 mm concerning for metastatic disease. Short-term was recommended, and PET CT showed multiple subcentimeter pulmonary nodules but no hypermetabolic uptake; however, metastatic pulmonary parenchymal disease cannot be excluded. Patient was accompanied by her son and grandson. We have discussed nature of the disease and also reviewed NCCN guidelines. Based on the NCCN guidelines, management of local recurrent disease,of the patient was treated initially with mastectomy and no prior radiation, still surgical resection is the recommended treatment if possible plus followed by radiation; I also discussed her main treatment will be systemic treatment. have pulm . We will follow as follow up and treatment progresses. ASHLEY
== END ==
LOC: M ONCR 10:21
PROVIDERS: ATTEND Radiology Radiation Oncology
DX: C50.911 Malignant neoplasm of unspecified site of right female breast (principal); E03.9 Hypothyroidism, unspecified; E78.5 Hyperlipidemia, unspecified; H40.9 Unspecified glaucoma; I10 Essential (primary) hypertension; K21.9 Gastro-esophageal reflux disease without esophagitis; M06.9 Rheumatoid arthritis, unspecified; M81.0 Age-related osteoporosis without current pathological fracture; R76.11 Nonspecific reaction to tuberculin skin test without active tuberculosis; R91.8 Other nonspecific abnormal finding of lung field; Z79.899 Other long term (current) drug therapy; Z90.11 Acquired absence of right breast and nipple

== ENCOUNTER 2019-04-01 13:17 | Outpatient (CLI) | payer MEDICARE ==
[~2019-04-01] VITALS: Ht 157.5 cm; Wt 63.0 kg
[2019-04-01 13:25] VITALS: BP 116/59
[2019-04-01] MEDS ORDERED: methylPREDNISolone INJ 125 MG/2 ML VIAL (J2930) IV PRN (13:30)
[2019-04-01] MEDS ORDERED: EPINEPHrine INJ 1 MG/ML 1ML VIAL IM PRN (13:30)
[2019-04-01] MEDS ORDERED: diphenhydrAMINE INJ 50MG/ML VIAL (J1200) IV PRN (13:30)
[2019-04-01] MEDS ORDERED: LORATADINE 10 MG TAB PO ONE (13:30)
[2019-04-01] MEDS ORDERED: ALBUTEROL SULFATE 2.5 MG/0.5 ML INH NEB SOLN INH PRN (13:30)
[2019-04-01] MEDS ORDERED: NS 1,000 ML IV SCH (13:30)
[2019-04-01] MEDS ORDERED: ACETAMINOPHEN 650MG ER TAB (TYLENOL ARTHRITIS) PO ONE (13:30)
[2019-04-01] MEDS ORDERED: inFLIXimab INJECTION 300 MG in NS 220 ML IV ONE (14:00)
[2019-04-01 16:20] VITALS: BP 133/62
== END 2019-04-01 16:20 | disposition home or self-care (01) ==
LOC: M INFU 13:17
PROVIDERS: ATTEND Internal Medicine Rheumatology
DX: M06.9 Rheumatoid arthritis, unspecified (principal)
CPT/HCPCS: 96413; 96415; J1745

== ENCOUNTER → 2019-04-04 | Outpatient (CLI) | payer MEDICARE ==
[2019-04-04 09:06] VITALS: BP 132/74
--- NOTE | 2019-04-04 09:39 | ROOPDOC ---
[facility] Report Of Operation Report of Operation DATE OF PROCEDURE: 04/04/19 PREPROCEDURE DIAGNOSES: Right chest wall mass with right breast cancer recurrence POSTPROCEDURE DIAGNOSES: Right chest wall mass with right breast cancer recurrence PROCEDURE: Ultrasound-guided right chest wall mass biopsy with clip placement SURGEON: Cassi Bonilla SUGARCANE PLANTER: ANESTHESIA: Local ESTIMATED BLOOD LOSS: Approximately 1 mL. COMPLICATIONS: None REMARKS: Post biopsy mammogram was not done as patient has a history of right mastectomy without reconstruction and the mass was on her right chest wall PROCEDURE NOTE: DESCRIPTION OF PROCEDURE: Lidocaine 1% LOT CLC [id number] Expiration 03/2020 Sodium Bicarbonate 8.4% LOT [id number] Expiration 10/2020 Hydromark clip LOT [id number] Expiration 11/2020 Titanium shape 3 Bx device: BARD [id number] x10 cm LOT [id number] [id number] Expiration 01/2022 Informed consent was obtained. The most common risk and possible complications including bleeding, hematoma, bruising, infection, injury to surrounding structures were explained to the patient and she expressed understanding. Patient was taken to the procedure room and placed on the bed in the supine position with the right upper extremity placed above the head. Appropriate time out was done stating patients name, date of , and the procedure to be performed. Patient has a history of right mastectomy without reconstruction and she has well healed oblique scar across the chest. The right chest wall was prepped and draped in the usual fashion. The ultrasound was used to confirm the location of the lesion at the right chest wall superior aspect of the mastectomy scar, 6 centimeters from Axilla, inferior and lateral to the lateral aspect of the pectoralis major muscle Plain Lidocaine 1% and 8.4% sodium bicarbonate 10:1 mix was used to numb the skin, the biopsy site and tissues along the anticipated biopsy tract. Small skin incision was made with blade number 11. BARD Marquee 14G cannula with in troducer ([id number]) was inserted through the incision and advanced under the ultrasound guidance to position immediately adjacent to the lesion. Next, the introducer was removed and BARD Marquee 14G biopsy device was places in the cannula. Pre-biopsy imaging, and post-biopsy imaging were captured. Six good core biopsies were taken at various levels of the lesion. Specimen was placed in formaldehyde, labeled with appropriate biopsy site and patients name, and sent to pathology for evaluation. Next, the biopsy device was withdrawn and a clip introducer was inserted into the biopsy site via the cannula. The Hydromark clip was deployed under direct vision. Post-clip placement image was captured. Manual pressure over the biopsy cavity and tract was held after the clip introducer was withdrawn. No bleeding was noted upon removal of the pressure. Post-biopsy mammogram was not done as patient has a history of mastectomy and the lesion was on the right chest wall. Postprocedural dressing was placed. Patient tolerated procedure well. Discharge instructions were discussed with the patient and she expressed understanding. CASSI Kim DO Apr 04, 2019 09:39
--- NOTE | 2019-04-04 10:17 | REP ---
FOCUSED RIGHT CHEST WALL/BREAST ULTRASOUND: HISTORY: Ultrasound-guided right breast biopsy, recurrent cancer right breast. FINDINGS: Sonographic guidance is provided to Dr. Bonilla, who performed ultrasound-guided needle biopsy procedure.
== END ==
LOC: M WHCPRO 07:36
PROVIDERS: ATTEND Surgery
DX: D23.5 Other benign neoplasm of skin of trunk (principal); Z90.11 Acquired absence of right breast and nipple; Z85.3 Personal history of malignant neoplasm of breast

== ENCOUNTER → 2019-06-04 | Outpatient (CLI) | payer MEDICARE ==
[~2019-06-04] MED LIST changes: -DORZ1SOL4 OP; +DORZ1SOL4 OU; +LETR2.5T2 PO; +ULTR50TA8 PO; +VITAD1000T PO
== END ==
LOC: M LABSMTC 10:00
PROVIDERS: ATTEND Anesthesiology
DX: Z11.59 Encounter for screening for other viral diseases (principal)

== ENCOUNTER 2019-06-05 06:07 | Day surgery (SDC) | payer MEDICARE ==
[~2019-06-05] VITALS: Ht 160 cm; Wt 59.9 kg
[~2019-06-05 06:07] MED LIST changes: +LIDOCAINE 1% MDV 20ML VIAL SQ PRN; -ULTR50TA8 PO
[2019-06-05] MEDS ORDERED: HEPARIN SOD (PORCINE) 5000UNITS/ML VIAL (J1644 PER 1000UNITS) SQ ONE (07:00)
[2019-06-05] MEDS ORDERED: BUPIVACAINE HCL 0.25% 10ML VIAL As Ordered ONE (07:00)
[2019-06-05] MEDS ORDERED: ceFAZolin SOD 2 GM in IV 1 EA IV ONE (07:00)
[2019-06-05] MEDS ORDERED: LIDOCAINE 1% MDV 20ML VIAL As Ordered ONE (07:00)
[2019-06-05] MEDS ORDERED: LR 1,000 ML IV ONE (07:00)
[2019-06-05] MEDS ORDERED: propofoL 200 MG/20 ML VIAL As Ordered ONE (07:19)
[2019-06-05] MEDS ORDERED: MIDAZOLAM INJ 2MG/2ML VIAL (J2250 PER 1MG) As Ordered ONE (07:20)
[2019-06-05] MEDS ORDERED: LIDOCAINE 2% 100MG/5ML SDV (FOR ANES.) As Ordered ONE (07:20)
[2019-06-05] MEDS ORDERED: fentaNYL 100 MCG/2 ML INJECTION (J3010) As Ordered ONE (07:20)
[2019-06-05] MEDS ORDERED: ROCURONIUM BROMIDE 50 MG/5 ML VIAL As Ordered ONE (07:20)
[2019-06-05] MEDS ORDERED: ONDANSETRON 4MG/2ML VIAL As Ordered ONE (07:21)
[2019-06-05] MEDS ORDERED: dexameTHASONE 4 MG/ML 1ML VIAL (J1100 PER 1MG) As Ordered ONE (07:21)
[2019-06-05] MEDS ORDERED: ePHEDrine SULFATE 25 MG/5 ML(5MG/ML) SYRINGE As Ordered ONE (08:01)
[2019-06-05] MEDS ORDERED: ULTR50TA8 PO (09:03)
[2019-06-05] MEDS ORDERED: PHENYLephrine HCL 500 MCG/5 ML (100MCG/ML) SYRINGE (J2370) As Ordered ONE (09:43)
[2019-06-05 09:50] VITALS: BP 136/65
--- NOTE | 2019-06-05 11:27 | ROOPDOC ---
[facility] Report Of Operation Report of Operation DATE OF PROCEDURE: 06/05/19 PREPROCEDURE DIAGNOSES: Right breast cancer chest wall recurrence POSTPROCEDURE DIAGNOSES: Right breast cancer chest wall recurrence PROCEDURE: Right breast cancer chest wall recurrence excision SURGEON: Cassi Shelley UPPER TRIMMER: ANESTHESIA: MAC ESTIMATED BLOOD LOSS: Approximately 1 mL. COMPLICATIONS: none REMARKS: the suspicious nodule was identified in the middle of the specimen using intraop ultrasound DESCRIPTION OF PROCEDURE: INDICATIONS: Ms. Cervantes is an 88-year-old woman who has a right breast cancer recurrence after right breast mastectomy. She initially had a right invasive lobular carcinoma diagnosed in 2007 which was treated with lumpectomy initially but due to positive margins simple mastectomy was done on the right side. She underwent chemotherapy due to positive lymph nodes and completed the antihormonal treatment. Unfortunately, recently she discovered a hard nodule on the medial aspect of her mastectomy site. This was biopsied and came back as Invasive lobular carcinoma. She was referred to me by medical oncology to do excision of the nodule after systemic evaluation was completed. Patient has a history of RA and was on Remicade. Last infusion was 8 weeks ago. Risks and possible complications of surgical procedure including bleeding, infection and injury to surrounding structures were explained to the patient and she wished to proceed. Consent was signed. My initials were placed on the operative site. Subcutaneous injection of 5000 units of heparin was done in Preop. DETAILS: Patient was taken to the operating room and placed on the operating room table. A sign in was called stating patients name, date of and the procedure to be done. Preoperative antibiotics were infused. Moderate sedation anesthesia was done. Patients hands were extended on arm rests. Care was taken not to over extend the arms. Next, patients right chest wall was prepped and draped in the usual fashion. Appropriate time out was done. Patients name, date of , and the procedure to be done were confirmed. The right chest wall nodule was identified by palpation and confirmed with intraop ultrasound. Borders of excision were marked using the ultrasound to assure adequate margins. Next, generous amount of local anesthetic using 1% lidocaine and 0.25 % Marcaine 50/50 mix was injected at the site of planned elliptical incision located at the medial aspect of the right chest wall. The incision was made with the scalpel. The dissection was carried all the way down to the muscle. Excision of tissue measuring 3.5 x 3 cm was done. The suspicious nodule was confirmed to be centrally located in the specimen with intraop ultrasound. The specimen was carefully removed from chest wall keeping its proper orientation and moved to the back table where margins were marked with the surgical inking kit following the standard colors recommendations. Anterior margin was not marked as the skin was kept with the specimen. The specimen was labeled with patients name and right chest wall excision and sent to pathology. Next, the wound was irrigated thoroughly and adequate hemostasis was assured. Additional local anesthetic was injected into surrounding tissues. space was approximated with 3-0 Vicryl. The dermis was closed with 3-0 Vicryl and skin was closed with 4-0 Monocryl. Surgical glue was placed over the incision. Patient emerged from the anesthesia without any problems. Fluffs were placed over the operative site and patients chest was wrapped snuggly in the DANIA wrap. Sponge and instrument counts were done and were correct. Patient tolerated procedure well and was taken to recovery unit in stable condition. CASSI SHELLEY DO Jun 05, 2019 10:04
== END 2019-06-05 10:10 | disposition home or self-care (01) ==
LOC: M SDC 06:07
PROVIDERS: ATTEND Surgery
DX: C50.911 Malignant neoplasm of unspecified site of right female breast (principal); Z90.11 Acquired absence of right breast and nipple; Z85.3 Personal history of malignant neoplasm of breast; I10 Essential (primary) hypertension; E78.00 Pure hypercholesterolemia, unspecified; E03.9 Hypothyroidism, unspecified; K21.9 Gastro-esophageal reflux disease without esophagitis; M06.9 Rheumatoid arthritis, unspecified; M19.90 Unspecified osteoarthritis, unspecified site; M54.9 Dorsalgia, unspecified; M85.80 Other specified disorders of bone density and structure, unspecified site; H40.9 Unspecified glaucoma; J30.9 Allergic rhinitis, unspecified; Z79.899 Other long term (current) drug therapy; Z92.21 Personal history of antineoplastic chemotherapy; Z92.3 Personal history of irradiation
CPT/HCPCS: 11606; 13101; 13102; 88309; 88341; 88342; J0690; J1100; J1644; J2370; J2405; J3010

== ENCOUNTER 2019-07-05 11:52 | Outpatient (CLI) | payer MEDICARE ==
[~2019-07-05] VITALS: Ht 157.5 cm; Wt 59.4 kg
[2019-07-05] VITALS (8 sets, daily range): BP systolic 94–118; BP diastolic 53–58
[~2019-07-05 11:52] MED LIST changes: -LIDOCAINE 1% MDV 20ML VIAL SQ PRN; +ULTR50TA8 PO
[2019-07-05] MEDS ORDERED: NS 1,000 ML IV SCH (12:00)
[2019-07-05] MEDS ORDERED: methylPREDNISolone INJ 125 MG/2 ML VIAL (J2930) IV PRN (12:00)
[2019-07-05] MEDS ORDERED: EPINEPHrine INJ 1 MG/ML 1ML AMP IM PRN (12:00)
[2019-07-05] MEDS ORDERED: LORATADINE 10 MG TAB PO ONE (12:00)
[2019-07-05] MEDS ORDERED: diphenhydrAMINE 50MG/ML VIAL (J1200) IV PRN (12:00)
[2019-07-05] MEDS ORDERED: ACETAMINOPHEN 650MG ER TAB (TYLENOL ARTHRITIS) PO ONE (12:00)
[2019-07-05] MEDS ORDERED: ALBUTEROL SULFATE 2.5 MG/0.5 ML INH NEB SOLN INH PRN (12:00)
[2019-07-05] MEDS ORDERED: inFLIXimab INJECTION 300 MG in NS 220 ML IV ONE (12:15)
[2019-07-08] MEDS ORDERED: LETR2.5T2 PO (14:51)
== END 2019-07-05 14:45 | disposition home or self-care (01) ==
LOC: M INFU 11:52
PROVIDERS: ATTEND Internal Medicine
DX: M06.9 Rheumatoid arthritis, unspecified (principal); Z79.82 Long term (current) use of aspirin; Z79.899 Other long term (current) drug therapy
CPT/HCPCS: 96413; 96415; J1745

== ENCOUNTER → 2019-07-23 | Outpatient (CLI) | payer MEDICARE ==
[~2019-07-23] MED LIST changes: +ASPI1TAB22 PO
--- NOTE | 2019-07-25 10:26 | RADONC ---
RADIATION ONCOLOGY FOLLOWUP CONSULTATION NOTE DATE: 07/23/2019 This is a telemedicine visit. The patient was informed of the risks including security breech, technological failure, inability to perform a comprehensive physical exam which could delay or prevent an accurate diagnosis, and potential complications from treatment decisions rendered over a telemedicine platform. The patient understands and consented to the use of telehealth services phone only. DIAGNOSIS: Right breast cancer. STAGE: Recurrent. ECOG PERFORMANCE STATUS: Not evaluated. FOLLOWUP NOTE: Ms. Cervantes is a very pleasant 88-year-old female with the diagnosis of recurrent chest wall right-sided breast cancer who was initially seen in our department by Dr. Jhoana Dias, on 03/28/2019. Refer to her consultation note, which is quite thorough. At that time, Dr. Dias reviewed the NCCN guidelines with the patient and recommended a surgical resection of her chest wall recurrence followed possibly by radiation therapy in order to increase the likelihood of achieving local control. Since her last consult, the patient underwent surgical chest wall resection on 06/05/2019. Pathology revealed a 0.7 cm poorly differentiated infiltrating carcinoma with lobular features. Perineural invasion was present. There was no lymph vascular invasion identified. The surgical margins were uninvolved by invasive carcinoma. The tumor was therefore staged as a pathologic [id number] recurrent malignancy. Of note, the tumor was estrogen receptor positive, progesterone receptor positive and HER2/safia negative. The patient reports that she was started on letrozole by medical oncology and is now presenting for discussion of external beam radiation therapy. REVIEW OF SYSTEMS: The patient reports that she is quite elderly and has trouble just getting around the house. She has a great deal the physical limitations according to today's discussion. Her review of systems is otherwise noncontributory. Denies nausea, vomiting, fevers, chills, night sweats, diplopia, headaches, anxiety or depression, anorexia, weight loss, visual disturbances, chest pain, urinary or bowel difficulties, bone pain, or neurological problems. PHYSICAL EXAMINATION: Physical examination was deferred at this time as per COVID precautions. Should the patient change her mind and wish to undergo treatments, we will examine her chest wall at time of treatment planning. ASSESSMENT: I had a very lengthy discussion with this patient with regards to the potential benefits as well as acute and chronic sequelae of external beam radiation therapy. I explained that I believe post op radiation is the best treatment and standard recommendation. In detail, I explained to her the likelihood of local recurrence with and without radiation. I explained the reasoning behind offering her radiation. I did describe a higher of local recurrence without RT. The patient has decided against treatment at this time. I made clear to her that she needs to continue her letrozole treatments if she chooses not to undergo radiation and maintain close followup and routine chest wall examinations with her breast surgeon and medical oncologist so that intervention can be undertaken at the earliest sign of any local recurrence. Considering the patient's advanced age and difficulty with transportation as well as our current COVID issues, I do not think it unreasonable to choose hormonal therapy at this point. The tumor after all is hormone receptor positive. I did offer the patient radiation and I did explain again that RT would be my recommendation. If she were younger and in better shape, I would even more aggressively be pushing this as I think she has a high likelihood of chest wall recurrence, especially if she were to stop taking her hormonal therapy. I have given the patient my cell phone number and the office number. Should she change her mind, we can initiate treatment planning and treat her at anytime. Once again at the age of 88 and with this patient's self described fragility, I cannot say she has made an incorrect choice. I have not physically seen the patient and her initial consultation was with a different radiation physician. Thank you for allowing us to participate in the care of this very pleasant woman. I am more than happy to see her at anytime should she decide on radiation. She is scheduled to be seen by medical oncology again to discuss continued hormonal therapy and other options. cc: DO Fadi Casas MD Frederick Tontarski, PA MTDD
== END ==
LOC: M ONCR 09:18
PROVIDERS: ATTEND Radiology Radiation Oncology
DX: C50.919 Malignant neoplasm of unspecified site of unspecified female breast (principal)

== ENCOUNTER 2019-10-28 11:53 | Outpatient (CLI) | payer MEDICARE ==
[~2019-10-28] VITALS: Ht 157.5 cm; Wt 59.4 kg
[~2019-10-28 11:53] MED LIST changes: +D31000TA2 PO; -VITAD1000T PO
[2019-10-28 12:00] VITALS: BP 134/65
[2019-10-28] MEDS ORDERED: diphenhydrAMINE 50MG/ML VIAL (J1200) IV PRN (12:00)
[2019-10-28] MEDS ORDERED: ACETAMINOPHEN 650MG ER TAB (TYLENOL ARTHRITIS) PO ONE (12:00)
[2019-10-28] MEDS ORDERED: LORATADINE 10 MG TAB PO ONE (12:00)
[2019-10-28] MEDS ORDERED: EPINEPHrine INJ 1 MG/ML 1ML AMP IM PRN (12:00)
[2019-10-28] MEDS ORDERED: ALBUTEROL SULFATE 2.5 MG/0.5 ML INH NEB SOLN INH PRN (12:00)
[2019-10-28] MEDS ORDERED: NS 1,000 ML IV SCH (12:00)
[2019-10-28] MEDS ORDERED: methylPREDNISolone 125MG 2ML VIAL IV PRN (12:00)
[2019-10-28] MEDS ORDERED: inFLIXimab INJECTION 300 MG in NS 220 ML IV ONE (12:00)
[2019-10-28] MEDS ORDERED: LORATADINE 10 MG TAB As Ordered ONE (12:18)
[2019-10-28] MEDS ORDERED: ACETAMINOPHEN 650MG ER TAB (TYLENOL ARTHRITIS) As Ordered ONE (12:18)
[2019-10-28 12:45] VITALS: BP 134/65
[2019-10-28 13:00] VITALS: BP 122/62
[2019-10-28 14:30] VITALS: BP 115/59
== END 2019-10-28 14:30 | disposition home or self-care (01) ==
LOC: M INFU 11:53
PROVIDERS: ATTEND Internal Medicine
DX: M06.9 Rheumatoid arthritis, unspecified (principal)
CPT/HCPCS: 96413; 96415; J1745

== ENCOUNTER 2019-12-23 12:01 | Outpatient (CLI) | payer MEDICARE ==
[~2019-12-23] VITALS: Ht 157.5 cm; Wt 59.4 kg
[~2019-12-23 12:01] MED LIST changes: +ACETAMINOPHEN 650MG ER TAB (TYLENOL ARTHRITIS) PO ONE; +ALBUTEROL SULFATE 2.5 MG/0.5 ML INH NEB SOLN INH PRN; +EPINEPHrine INJ 1 MG/ML 1ML AMP IM PRN; +LORATADINE 10 MG TAB PO ONE; +NS 1,000 ML IV SCH; +diphenhydrAMINE 50MG/ML VIAL (J1200) IV PRN; +inFLIXimab INJECTION 300 MG in NS 220 ML IV ONE; +methylPREDNISolone 125MG 2ML VIAL IV PRN
[2019-12-23 12:35] VITALS: BP 131/63
[2019-12-23 12:50] VITALS: BP 149/67
[2019-12-23 13:35] VITALS: BP 112/53
== END 2019-12-23 13:55 | disposition home or self-care (01) ==
LOC: M INFU 12:01
PROVIDERS: ATTEND Internal Medicine
DX: M06.9 Rheumatoid arthritis, unspecified (principal)
CPT/HCPCS: 96413; J1745

== ENCOUNTER 2020-02-17 12:07 | Outpatient (CLI) | payer MEDICARE ==
[~2020-02-17] VITALS: Ht 157.5 cm; Wt 57.7 kg
[~2020-02-17 12:07] MED LIST changes: +ACETAMINOPHEN 325 MG TAB PO ONE; -ACETAMINOPHEN 650MG ER TAB (TYLENOL ARTHRITIS) PO ONE
[2020-02-17 12:15] VITALS: BP 150/67
[2020-02-17 13:40] VITALS: BP 129/57
[2020-02-17 14:30] VITALS: BP 133/64
== END 2020-02-17 14:30 | disposition home or self-care (01) ==
LOC: M INFU 12:07
PROVIDERS: ATTEND Internal Medicine
DX: M06.9 Rheumatoid arthritis, unspecified (principal)
CPT/HCPCS: 96413; J1745

== ENCOUNTER 2020-04-13 11:50 | Outpatient (CLI) | payer MEDICARE ==
[~2020-04-13] VITALS: Ht 157.5 cm; Wt 57.7 kg
[~2020-04-13 11:50] MED LIST changes: -ACETAMINOPHEN 325 MG TAB PO ONE; -ALBUTEROL SULFATE 2.5 MG/0.5 ML INH NEB SOLN INH PRN; -EPINEPHrine INJ 1 MG/ML 1ML AMP IM PRN; +HYDR-3490 PO; -HYDR25TAB PO; -LORATADINE 10 MG TAB PO ONE; -NS 1,000 ML IV SCH; -diphenhydrAMINE 50MG/ML VIAL (J1200) IV PRN; -inFLIXimab INJECTION 300 MG in NS 220 ML IV ONE; -methylPREDNISolone 125MG 2ML VIAL IV PRN
[2020-04-13 11:55] VITALS: BP 146/67
[2020-04-13] MEDS ORDERED: inFLIXimab INJECTION 300 MG in NS 220 ML IV ONE (12:00)
[2020-04-13] MEDS ORDERED: LORATADINE 10 MG TAB PO ONE (12:00)
[2020-04-13] MEDS ORDERED: ACETAMINOPHEN 650MG PO PRIOR TO INFUSION PO ONE (12:00)
[2020-04-13 12:40] VITALS: BP 146/67
[2020-04-13 13:00] VITALS: BP 122/60
[2020-04-13 14:00] VITALS: BP 128/64
== END 2020-04-13 14:00 | disposition home or self-care (01) ==
LOC: M INFU 11:50
PROVIDERS: ATTEND Internal Medicine
DX: M06.9 Rheumatoid arthritis, unspecified (principal)
CPT/HCPCS: 96413; J1745

== ENCOUNTER 2020-06-08 11:54 | Outpatient (CLI) | payer MEDICARE ==
[~2020-06-08] VITALS: Ht 157.5 cm; Wt 57.7 kg
[~2020-06-08 11:54] MED LIST changes: +ALBUTEROL SULFATE 2.5 MG/0.5 ML INH NEB SOLN INH PRN; +EPINEPHrine INJ 1 MG/ML 1ML AMP IM PRN; +diphenhydrAMINE 50MG/ML VIAL (J1200) IV PRN; +methylPREDNISolone 125MG 2ML VIAL IV PRN
[2020-06-08] MEDS ORDERED: LORATADINE 10 MG TAB PO ONE (12:00)
[2020-06-08] MEDS ORDERED: ACETAMINOPHEN 650MG PO PRIOR TO INFUSION PO ONE (12:00)
[2020-06-08] MEDS ORDERED: inFLIXimab INJECTION 300 MG in NS 220 ML IV ONE (12:00)
[2020-06-08 13:00] VITALS: BP 148/72
[2020-06-08 13:15] VITALS: BP 127/64
[2020-06-08 13:56] VITALS: BP 135/70
== END 2020-06-08 14:00 | disposition home or self-care (01) ==
LOC: M INFU 11:54
PROVIDERS: ATTEND Internal Medicine
DX: M06.9 Rheumatoid arthritis, unspecified (principal)
CPT/HCPCS: 96413; J1745